=== PATIENT | female | born 1955 | race Caucasian/White ===

== ENCOUNTER 2018-02-03 10:56 | Outpatient (CLI) | payer MEDICAID ==
[~2018-02-03] VITALS: Ht 162.6 cm; Wt 59.1 kg
--- NOTE | ~2018-02-03 | OP ---
PATIENT NAME: JENNIFER NYE MEDICAL RECORD: [id number] :57 LOCATION:D.CAT ADMISSION DATE: SURGEON: MANUEL EUBANKS MD DATE OF OPERATION: 02/03/2018 PROCEDURE: Left heart catheterization, selective coronary angiography, right radial approach. CATHETERS: Radial sheath and Sheldon catheter. The procedure was well tolerated. The patient was returned to pierce. Sheath was removed. TR band was placed. FINDINGS: Left ventriculography in 30-degree RICKETTS view: Normal wall motion and normal systolic function. CORONARY ANATOMY: LEFT MAIN: Left main is free of disease. LAD: Free of disease in the diagonal system. CIRCUMFLEX: Free of disease in the marginal system. RIGHT CORONARY ARTERY: Dominant artery, gives rise to PDA, free of disease. IMPRESSION: Normal LV systolic function. Normal coronary anatomy. TRANSINT:[id number] Voice Confirmation ID: [id number] DOCUMENT ID: [id number] MANUEL EUBANKS MD at 1546 CC: [id number] DICTATION DATE: 02/03/18 1356 MOBILE SALES CONSULTANT: 02/03/18 1717 DEP CLI 02/03/18 [facility] [address] [place] [address]
--- NOTE | ~2018-02-03 | HEMODYNAMI ---
PATIENT:JENNIFER YNE MEDICAL RECORD: [id number] : 57 LOCATION:DNYLA ADMISSION DATE: 02/03/18 Generatedon:02/03/201813:53 Patient name: JENNIFER NYE Patient #: [id number] SSN: : 1955 Date of study: 02/03/2018 Page: Of Hemodynamic Procedure Report Patient Data Patient Demographics Procedure consent was obtained First Name: JENNIFER Gender: Female Last Name: PARRIS : 1955 [facility] Initial: CARMELITA Age: 62 year(s) Patient #: [id number] Race: Unknown Additional ID: [id number] Contact details [address]: [address] [place] [address] State: [place] City: [place] Zip code: [address] Admission Admission Data Admission Date: 02/03/2018 Admission Time: 10:56 Procedure Procedure Types Cath Procedure Diagnostic Procedure LHC LHC w/Coronaries Procedure Description Procedure Date Procedure Date: 02/03/2018 Procedure Start Time: 13:46 Procedure End Time: 13:52 Procedure Staff Name Function Willis Dial MD Performing Physician Shilpi Villaseñor RT Monitor Becki Moreno RT Scrub Omkar Valladares RN Nurse Procedure Data Cath Procedure Fluoroscopy Diagnostic fluoroscopy Total fluoroscopy Time: 1.2 time: 1.2 min min Diagnostic fluoroscopy Total fluoroscopy dose: 117 dose: 117 mGy mGy Contrast Material Contrast Material Type Amount (ml) Isovue 300 26 Entry Location Entry Primary Successful Side Size Upsize Upsize Entry Closure Melchor ccessful Closure Location (Fr) 1 (Fr) 2 (Fr) Remarks Device Remarks Femoral Right 6 Fr Mechanical artery Short Compression Estimated blood loss: 5 ml Diagnostic catheters Device Type Used For End Catheter Placement DIAGNOSTIC [place] 110cm 5 Multi-vessel Fr catheter ([id number]) Angiography Procedure Complications No complications Procedure Medications Medication Administration Route Dosage 0.9% NaCl I.V. 100 ml/hr Oxygen etCO2 Nasal cannula 2 l/min Heparin Flush Bag added to field 2 bags (1000units/500ml NS) Lidocaine 2% added to field 20 Radial Cocktail added to field 1 syringe (Verapomil 2mg/Nitro 400mcg/Heparin 1500units) Versed I.V. 2 mg Fentanyl I.V. 100 mcg Versed I.V. 1 mg Radial Cocktail I.A. 1 syringe (Verapomil 2mg/Nitro 400mcg/Heparin 1500units) Hemodynamics Rest Heart Rate: 96 (bpm) Pressure Samples Time Site Value (mmHg) Purpose Heart Use Rate(bpm) 13:48 LV 79/-18,-1 Snapshot 91 Gradients Valve Time Site Site Mean SEP/DFP Peak To Heart Use 1 2 (mmHg) (sec/min) Peak Rate (mmHg) (bpm) Aortic 13:48 LV AO 91 Snapshots Pre Cath Intra NCS Post Cath Vital Signs Time Heart Resp SPO2 etCO2 NIBP Rhythm Pain Sedation Rate (ipm) (%) (mmHg) (mmHg) Status Level (bpm) 13:37:01 77 10 100 34.9 131/65(85) NSR 0 (11) 10(A) , No pain 13:41:13 69 15 100 26.8 104/59(95) NSR 0 (11) 10(A) , No pain 13:45:17 79 12 92 40.1 110/62(94) NSR 0 (11) 10(A) , No pain 13:49:24 83 11 98 39.4 100/54(90) NSR 0 (11) 10(A) , No pain Medications Time Medication Route Dose Verified Delivered Reason Notes Effectiveness by by 13:37:34 0.9% NaCl I.V. 100 Omkar Omkar Per ml/hr Lorigan Lorigan physician RN RN 13:37:44 Oxygen etCO2 2 l/min Omkar Omkar Per Nasal Lorigan Lorigan physician cannula RN RN 13:37:53 Heparin Flush added 2 bags Omkar Omkar used for Bag to Lorigan Lorigan procedure (1000units/500ml field RN RN NS) 13:38:03 Lidocaine 2% added 20ml Omkar Omkar for local to vial Lorigan Lorigan anesthetic field RN RN 13:38:15 Radial Cocktail added 1 Omkar Omkar used for (Verapomil to syringe Lorigan Lorigan procedure 2mg/Nitro field RN RN 400mcg/Heparin 1500units) 13:40:39 Versed I.V. 2 mg Omkar Omkar for sedation Blaine Valladares RN, RN 13:40:50 Fentanyl I.V. 100 mcg Omkar Mokar for sedation Blaine Valladares RN, RN 13:44:41 Versed I.V. 1 mg Omkar Omkar for sedation Blaine Valladares RN, RN 13:46:35 Radial Cocktail I.A. 1 Omkar Willis for (Verapomil syringe Lorigan Jayro vasodilation 2mg/Nitro RN 400mcg/Heparin 1500units) Procedure Log Time Note 13:07:50 Diagnostic Cath Status : Elective 13:08:11 Shilpi Kasi RT(R) sent for patient. Start room use. 13:08:12 Time tracking: Regular hours (M-F 7:00 - 5:00) 13:08:16 Plan of Care:Hemodynamics will remain stable., Cardiac rhythm will remain stable., Comfort level will be maintained., Respiratory function will remain adequate., Patient/ family verbilizes understanding of procedure., Procedure tolerated without complication., Recovers from procedure without complications.. 13:25:34 Patient received from Pre/Post Procedure Room to CCL 2 Alert and oriented. Tansferred to table in Supine position. 13:25:38 Warm blankets applied, and dc hugger turned on for patient comfort. 13:25:39 Correct patient and procedure confirmed by team. 13:25:40 Signed procedure consent form obtained from patient. 13:25:43 ECG and BP/O2 sat monitors applied to patient. 13:36:00 Vital chart was started 13:36:04 Baseline sample Acquired. 13:36:10 Rhythm: sinus rhythm 13:36:12 Full Disclosure recording started 13:36:17 H&P Date Dictated: 02/03/2018 Within 30 days and on chart., H&P Addendum completed by physician on day of procedure. (MUST COMPLETE FOR ALL OUTPATIENTS). 13:36:19 Pre-procedure instructions explained to patient. 13:36:19 Pre-op teaching completed and patient verbalized understanding. 13:36:20 Family in waiting room. 13:36:21 Patient NPO since Midnight. 13:36:24 Is the patient allergic to Iodine/contrast media? No. 13:36:26 Was the patient premedicated? No 13:36:27 Is patient on blood thinner?No 13:36:28 Patient diabetic? No. 13:36:30 Previous problem with sedation/anesthesia? No ? 13:36:32 Snore? No 13:36:34 Sleep apnea? No 13:36:35 Deviated septum? No 13:36:36 Opens mouth fully? Yes 13:36:36 Sticks out tongue? Yes 13:36:39 Airway obstruction? No ? 13:36:48 Dentures? No ? 13:37:04 Pre procedure: right dorsailis pedis pulse 2+ Normal; easily identifiable; not easily obliterated 13:37:07 Pre procedure: left dorsailis pedis pulse 2+ Normal; easily identifiable; not easily obliterated 13:37:10 Patient pain scale 0/10 ?. 13:37:16 IV patent on arrival in left forearm with 0.9% NaCl at [facility]. 13:37:29 Lab results completed and on chart. 13:37:34 0.9% NaCl 100 ml/hr I.V. was administered by Omkar Valladares RN; Per physician; 13:37:36 Right Radial & Right Groin area was prepped with chlora-prep and draped in sterile fashion 13:37:36 Alarms reviewed by R. N. 13:37:37 Sharps counted by scrub and verified by R.N. 13:37:44 Oxygen 2 l/min etCO2 Nasal cannula was administered by Omkar Valladares RN; Per physician; 13:37:53 Heparin Flush Bag (1000units/500ml NS) 2 bags added to field was administered by Omkar Valladares RN; used for procedure; 13:38:03 Lidocaine 2% 20ml vial added to field was administered by Omkar Valladares RN; for local anesthetic; 13:38:15 Radial Cocktail (Verapomil 2mg/Nitro 400mcg/Heparin 1500units) 1 syringe added to field was administered by Omkar Valladares RN; used for procedure; 13:38:38 Physician arrived 13:38:38 --------ALL STOP TIME OUT------ 13:38:39 Final Timeout: patient, procedure, and site verified with staff and physician. All members of the team are in agreement. 13:38:41 Right Radial & Right Groin site verified by team. 13:38:46 Physical assessment completed. ASA score P 2 - A patient with mild systemic disease as per Willis Dial MD. 13:38:53 Sedation plan: IV Moderate Sedation Medication:Versed, Fentanyl 13:38:59 Zero performed for pressure channel P1 13:40:39 Versed 2 mg I.V. was administered by Omkar Valladares RN; for sedation; 13:40:50 Fentanyl 100 mcg I.V. was administered by Omkar Valladares RN; for sedation; 13:44:41 Versed 1 mg I.V. was administered by Omkar Valladares RN; for sedation; 13:46:02 Procedure started. 13:46:07 Local anesthetic to right radial artery with Lidocaine 2% by Willis Dial MD.INITIAL ACCESS ONLY 13:46:35 Radial Cocktail (Verapomil 2mg/Nitro 400mcg/Heparin 1500units) 1 syringe I.A. was administered by Willis Dial MD; for vasodilation; 13:46:41 A 6 Fr Short sheath was inserted into the Right Femoral artery 13:47:21 Use device set Radial Dx or PCI 13:47:22 ACIST Syringe (52284) opened to sterile field. 13:47:23 Medline Cath Pack ([id number]) opened to sterile field. 13:47:23 Bag Decanter (2002S) opened to sterile field. 13:47:24 DIAGNOSTIC WIRE .035 260cm J wire (806394) opened to sterile field. 13:47:24 ACIST Hand Control (92357) opened to sterile field. 13:47:25 ACIST Manifold (88295) opened to sterile field. 13:47:25 Tegaderm 4 x 4 (1626W) opened to sterile field. 13:47:26 MBrace Wrist Support ([id number]) opened to sterile field. 13:47:27 SHEATH 6FR Slender (67-4624) opened to sterile field. 13:47:33 A DIAGNOSTIC [place] 110cm 5 Fr catheter (855477) was advanced over the wire and used for Multi-vessel Angiography. 13:48:26 LV hemodynamics recorded. 13:48:28 LV gram done using RICKETTS 13:48:30 Injector settings: Ml/sec: 5, Volume: 15, 13:48:49 EF : 55 % 13:48:51 LCA angiography performed. 13:49:00 Injector settings: Ml/sec: 3, Volume: 6, 13:50:00 RCA angiography performed. 13:50:03 Injector settings: Ml/sec: 3, Volume: 6, 13:50:16 Catheter removed. 13:50:20 TR BAND Standard ([id number]) opened to sterile field. 13:50:39 Sheath removed intact; hemostasis achieved with Mechanical Compression to the Right Femoral artery. 13:50:41 Procedure ended.(Physican Out) 13:51:16 Fluoroscopy time 01.20 minutes. 13:51:29 Fluoroscopy dose: 117 mGy 13:51:29 Flurop Dose total: 117 13:51:34 Contrast amount:Isovue 300 26ml. 13:51:35 Sharps counted by scrub and verified by R.N. 13:51:38 Insertion/operative site no bleeding no hematoma. 13:51:42 TR band inflated with 10cc of air. 13:51:47 Post right radial artery:stable 13:51:49 Post Procedure Pulses reassessed and unchanged 13:51:53 Post procedure rhythm: unchanged. 13:51:56 Estimated blood loss: 5 ml 13:51:57 Post procedure instruction explained to patient.Patient verbalizes understanding. 13:51:58 Patient needs reinforcement of post procedure teaching. 13:52:20 Procedure and supply charges have been captured, reviewed, submitted and are correct. 13:52:25 Procedure Complication : No complications 13:52:28 Vital chart was stopped 13:52:28 See physician's report for complete and final results. 13:52:36 Report given to Pre/Post Procedure Room. 13:52:39 Patient transfered to Pre/Post Procedure Room with Stretcher. 13:52:41 Procedure ended. 13:52:41 Full Disclosure recording stopped 13:52:45 End room use (Document Last) Device Usage Item Name Manufacture Quantity Catalog Hospital Part Current Minimal Lot# / Number Charge Number Stock Stock Serial# Code ACIST Acist 1 84863 708092 514644 096027 20 Syringe Mowjow (45519) Systems Inc Medline Medline 1 [id number] 575439 80708 145416 5 Cath Pack ([id number]) Bag Microtek 1 0135764 16302 264641 5 Decanter Medical Inc. () DIAGNOSTIC [place] 1 792051 415205 698567 166178 30 WIRE .035 260cm J wire (277144) ACIST Hand Acist 1 12457 518973 512446 982623 5 Control Medical (74051) Systems Inc ACIST Acist 1 05443 679020 128430 108175 5 Manifold Medical (95499) Systems Inc Tegaderm 4 3M 1 1626W 251561 241809 808669 5 x 4 (1626W) MBrace Advanced 1 140-0250-00 984891 90957 220717 5 Wrist Vascular Support Dynamics ([id number]) SHEATH 6FR Terumo 1 [id number] 213469 953382 773357 5 Slender (80-1060) DIAGNOSTIC Terumo 1 40-7233 057700 616320 000924 5 [place] 110cm 5 Fr catheter (995775) TR BAND Terumo 1 [id number] 813952 940002 385648 40 Standard ([id number]) Signature Audit [place] Stage Time Signature Unsigned Intra-Procedure 02/03/2018 Shilpi Villaseñor 1:53:17 PM RT(R) Signatures Monitor : Shilpi Villaseñor RT Signature : Date : Time : [place] [id number] [place] [address]
[2018-02-03] MEDS ORDERED: LEVOTHYROXINE75 MCG PO (11:22)
[2018-02-03 11:35] VITALS: BP 115/79; Ht 162.6 cm; Wt 59.1 kg
[2018-02-03 12:15] LABS: BASOPHILS 1.3 % (0-2); EOSINOPHILS 3.7 % (0-7); HEMATOCRIT 40.5 % (36.0-48.0); HEMOGLOBIN 13.8 g/dL (12-16); IMMATURE GRANULOCYTES 0.2 % (0-5); LYMPHOCYTES 31.9 % (15-50); MCHC 34.1 g/dL (31.0-37.0); MCV 96.9 fL (80.0-100.0); MEAN PLATELET VOLUME 8.9 fL (7.4-10.4); MONOCYTES 10.1 % (2-11); NEUTROPHILS 52.8 % (40-80); PLATELET COUNT 230 10x3/uL (130-400); RBC 4.18 10x6/uL (4.00-5.40); RDW 13.5 % (11.5-14.5); WBC 4.6 10x3/uL (4.8-10.8)
[2018-02-03 12:20] LABS: CALC OSMOLALITY 286 mosm/kg (275-300); CALCIUM 9.3 mg/dL (8.5-10.1); CARBON DIOXIDE 25.8 mmol/L (21.0-32.0); CHLORIDE - SERUM 105 mmol/L (98-107); CREATININE - SERUM 0.8 mg/dL (0.6-1.3); GLUCOSE 98 mg/dL (74-106); POTASSIUM - SERUM 3.8 mmol/L (3.5-5.1); SODIUM 143 mmol/L (136-145); UREA NITROGEN 17 mg/dL (7-18); eGFR NON AFRICAN AMERICAN 77 mL/min (90-120)
== END 2018-02-03 16:25 | disposition home or self-care (01) ==
LOC: D.CATH 10:56
PROVIDERS: Internal Medicine Interventional Cardiology
DX: I20.0 Unstable angina (principal); Z01.812 Encounter for preprocedural laboratory examination